=== PATIENT | male | born 1985 | race Caucasian/White ===

== ENCOUNTER 2020-10-26 15:31 | Emergency (ER) | payer OTHER ==
[~2020-10-26] VITALS: Ht 175.3 cm; Wt 156.5 kg
[2020-10-26 15:38] VITALS: BP 145/76
--- NOTE | 2020-10-26 15:39 | NUR ---
Patient ambulated to lobby with steady gait.
--- NOTE | 2020-10-26 15:56 | NUR ---
34 yo male from home c/o right ear pain x 2 days. Pt states green drainage x 2 days. Muffled hearing to right ear. 6/10 aching pain. Afebrile upon arrival. VSS
--- NOTE | 2020-10-26 15:58 | NUR ---
Patient discharged with v/s stable. Written and verbal after care instructions given and explained. Patient alert, oriented and verbalized understanding of instructions. Ambulatory with steady gait. All questions addressed prior to discharge. ID band removed. Patient advised to follow up with PMD. Rx of Ciprodex otic solution and Ibuprofen 600mg given. Patient educated on indication of medication including possible reaction and side effects. Opportunity to ask questions provided and answered.
== END 2020-10-26 15:58 | disposition home or self-care (01) ==
LOC: MED 15:31
DX: H60.93 Unspecified otitis externa, bilateral (principal); E11.9 Type 2 diabetes mellitus without complications
CPT/HCPCS: 99283

== ENCOUNTER 2022-10-21 15:41 | Emergency (ER) | payer OTHER ==
[~2022-10-21] VITALS: Ht 170.2 cm; Wt 150.6 kg
[2022-10-21 15:51] VITALS: BP 143/98
[2022-10-21] MEDS ORDERED: CLOT10SO5 TP (16:40)
[2022-10-21] MEDS ORDERED: NAPR-54 PO (16:42)
[2022-10-21] MEDS ORDERED: NAPROXEN 500 MG TAB PO SCH ×2 (16:50→21:00)
--- NOTE | 2022-10-21 17:00 | NUR ---
36/M WALKED IN C/O RIGHT EARACHE X3DAYS. DENIES HEARING DEFICIT, DENIES DISCHARGE, AAO4, AMBULATORY, VITALS STABLE. NKA PMH: DM
--- NOTE | 2022-10-21 17:20 | NUR ---
PER LAKESHA BOYD, ADMINISTERED IBUPROFEN 600MG PO INSTEAD OF NAPROXEN. ORDER CARRIED OUT AND PLACED.
[2022-10-21] MEDS ORDERED: IBUPROFEN 600 MG TAB ONE (17:26)
[2022-10-21] MEDS ORDERED: IBUPROFEN 600 MG TAB PO ONE (17:45)
== END 2022-10-21 17:25 | disposition home or self-care (01) ==
LOC: MED 15:41
DX: H92.01 Otalgia, right ear (principal)
CPT/HCPCS: 99282